=== PATIENT | female | born 1965 | race Caucasian/White ===

== ENCOUNTER 2023-03-22 19:26 | Emergency (ER) | payer BC, SELFPAY ==
[2023-03-22 19:32] VITALS: BP 138/91; PULSE 61; RESP 18; TEMP 36.6; O2SAT 99; BMI 23.3
--- NOTE | 2023-03-22 20:29 | ED.GENADULT ---
HPI - General Adult General Chief complaint: Dental/Oral/Mouth Injury/Pain Stated complaint: Inside lip injury Time Seen by Provider: 03/22/23 19:58 History of Present Illness HPI narrative: This 57-year-old female has an injury to her upper lip that occurred just prior to arrival. 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 She did not have loss of consciousness. She has a 1 cm laceration in the inner aspect of her upper lip. Related Data Home Medications Medication Instructions Recorded Confirmed No Known Home Medications 03/22/23 03/22/23 Allergies Allergy/AdvReac Type Severity Reaction Status Date / Time No Known Drug Allergies Allergy Verified 03/22/23 19:32 Review of Systems Status of ROS: Reports: 10 or more systems reviewed and unremarkable except as noted in History and below Narrative: Constitutional: No fevers, no weight gain or loss. Eyes: No discharge. No vision changes. HENT: No congestion, no sore throat, no ear pain. Cardiovascular: No chest pain, no palpitations. Respiratory: No shortness of breath, no wheezes, no cough. Gastrointestinal: No abdominal pain, no vomiting, no diarrhea. Genitourinary: No dysuria, no hematuria. Musculoskeletal: Normal range of motion. Skin: No rashes, no pruritis. Neurological: No dizziness, weakness, sensory change, speech change. Endo/Heme/Allergies: No bruising or bleeding. No polydipsia. Pysch: no suicidality, no anxiety, no insomnia. All other systems reviewed and are negative. Exam Narrative: Exam Narrative: Constitutional: Well-developed, well-nourished, no acute distress. HEENT: The inner aspect of the upper lip has a stellate laceration measuring in total less than 1 cm in length. The wound edges lay nicely together. There is no other sign of injury. Her teeth are not loose. There is no sign of active bleeding. Neck: Normal range of motion. Nontender. Supple. Heart: Intact distal pulses. Lungs: No chest discomfort. No wheezes, rhonchi, or rales. Abdomen: Nontender. Back: Normal range of motion. Extremities: Normal range of motion. No injury. Skin: Intact. No rash. Warm. No erythema or pallor. Neurologic: No altered sensation. No weakness. Alert and oriented. Psychiatric: No suicidality. No anxiety or depression. No insomnia. Nursing notes and vitals signs are reviewed. Const: Vital Signs, click to edit/add: Vital Signs - 24 hr 03/22/23 19:32 Temperature 97.9 F Pulse Rate [Right Pulse Oximeter] 61 Respiratory Rate 18 Blood Pressure [Le ft Upper Arm] 138/91 H Pulse Oximetry 99 Oxygen Delivery Me thod Room Air Course Vital Signs Vital signs: Initial Vital Signs Temperature 97.9 F 03/22/23 19:32 Temperature Source Temporal Artery Scan 03/22/23 19:32 Pulse Rate 61 03/22/23 19:32 Pulse Rhythm Regular 03/22/23 19:32 Pulse Strength 3+ Normal 03/22/23 19:32 Respiratory Rate 18 03/22/23 19:32 Blood Pressure 138/91 H 03/22/23 19:32 Blood Pressure Mean 106 H 03/22/23 19:32 Blood Pressure Position Sitting 03/22/23 19:32 Pulse Oximetry 99 03/22/23 19:32 Oxygen Delivery Method Room Air 03/22/23 19:32 Vital Signs Temperature 97.9 F 03/22/23 19:32 Pulse Rate 61 03/22/23 19:32 Respiratory Rate 18 03/22/23 19:32 Blood Pressure 138/91 H 03/22/23 19:32 Pulse Oximetry 99 03/22/23 19:32 Oxygen Delivery Method Room Air 03/22/23 19:32 Temperature 97.9 F 03/22/23 19:32 Pulse Rate 61 03/22/23 19:32 Respiratory Rate 18 03/22/23 19:32 Blood Pressure 138/91 H 03/22/23 19:32 Pulse Oximetry 99 03/22/23 19:32 Oxygen Delivery Method Room Air 03/22/23 19:32 Medical Decision Making MDM Narrative Medical decision making narrative: This 57-year-old female has a laceration on the inner aspect of her upper lip. I explained that these wounds are better left alone and will heal nicely and rather quickly. To repair the wound actually increases risk for infection. The patient did not have loss of consciousness and had no other injury. Tetanus status is up-to-date. Discharge Plan Discharge Clinical Impression: Laceration of lip Patient Disposition: Home, Self-Care Condition: Stable Additional Instructions: Increase activity as tolerated. Use [id number] medicines as needed and directed. Follow up with MD or return if worsening. Prescriptions: No Action No Known Home Medications Follow Up/Referrals: Emma Parker PA-C [Primary Care Provider] - Stand Alone Forms: [employer] Info Instructions
== END 2023-03-22 21:03 | disposition home or self-care (01) ==
PROVIDERS: Emergency Provider Emergency Medicine Emergency Medical Services; PCP Physician Assistant Medical
DX: S01.511A Laceration without foreign body of lip, initial encounter (principal); W54.1XXA Struck by dog, initial encounter
CPT/HCPCS: 99282; 99283; 99284

== ENCOUNTER 2024-04-30 19:30 | Emergency (ER) | payer BC, SELFPAY ==
[2024-04-30] VITALS (21 sets, daily range): BP systolic 88–163; BP diastolic 78–95; PULSE 56–120; RESP 18; TEMP 36.6; O2SAT 89–100; BMI 22.4
--- NOTE | 2024-04-30 20:24 | CRLHL7_ITS ---
For Patients: As a result of the Cures Act, medical imaging exams and procedure reports are released immediately into your electronic medical record. You may view this report before your referring provider. If you have questions, please contact your health care provider. INDICATION: Shortness of breath TECHNIQUE: Chest radiograph 2 views COMPARISON: None FINDINGS: Mediastinum: The mediastinum is normal in appearance. The heart silhouette is normal in size and morphology. Lung: Both lungs are unremarkable in appearance. No sign of pleural effusion seen. No pneumothorax is identified. Bone and Soft tissue: Unremarkable for age. IMPRESSION: 1. No acute cardiopulmonary disease is seen. Dictated by: Tristen Lang MD @ 04/30/2024 21:15:04 (Electronically Signed)
[2024-04-30 20:32] LABS: Lactate* 0.6 mmol/L (0.5-1.9)
[2024-04-30 20:33] LABS: Basophils Absolute Auto 0.05 K/uL (0.00-0.30); Eosinophils Absolute Auto 0.07 K/uL (0.00-0.50); Eosinophils Percent Auto 1.4 % (0.0-7.0); Hemoglobin* 10.8 gm/dL (12.0-16.0); Lymphocytes Absolute Auto 1.28 K/uL (0.90-2.90); Mean Corpuscular HGB Conc 32 gm/dL (32-36); Mean Corpuscular Hemoglobin 26 pg (26-34); Mean Corpuscular Volume 81 fL (80-100); Monocytes Percent Auto 9.4 % (0.0-11.0); Neutrophils Absolute Auto 3.25 K/uL (1.7-7.0); Neutrophils Percent Auto 63.2 % (42.0-72.0); Platelet Count* 240 K/uL (140-440); Red Blood Count 4.18 m/uL (4.00-5.20); White Blood Count* 5.13 K/uL (4.50-11.00)
[2024-04-30 20:35] LABS: Slide Review Reflex No
[2024-04-30] MEDS: 0.9 % SODIUM CHLORIDE 1000 ml 1,000 ML IV ×2 (20:45→21:10)
[2024-04-30 20:47] LABS: Troponin, Point-of-Care* 0.01 ng/ml (0.01-0.04)
[2024-04-30 20:48] LABS: Chloride* 105 mmol/L (96-114); Potassium* 3.9 mmol/L (3.6-5.1); Sodium* 133 mmol/L (135-149)
[2024-04-30 20:50] LABS: Creatinine* 0.9 mg/dL (0.5-1.5); Est. Creatinine Clearance* 59.81; Estimated Glomerular Filt Rate 73 ml/min
[2024-04-30 20:51] LABS: Anion Gap 6 mEq/L (7-15); Blood Urea Nitrogen* 18 mg/dL (7-30); Carbon Dioxide* 22 mmol/L (20-32); INR 0.93 (0.91-1.10)
[2024-04-30 20:52] LABS: Calcium* 9.2 mg/dL (8.4-10.6); Glucose* 98 mg/dL (60-115); Partial Thromboplastin Time* 31 Seconds (23-33)
[2024-04-30 20:58] LABS: C Reactive Protein* < 0.5 mg/dL (0.5-1.0); D Dimer Quantitative* < 0.27 ug/ml (0.00-0.50); Ethanol* < 0.01 % (0.01-0.03)
[2024-04-30 21:03] LABS: NT Pro B Type NatriureticPept* 684 pg/mL
[2024-04-30 21:04] LABS: Amphetamine Screen Urine Negative (Negative); Barbiturate Screen Urine Negative (Negative); Benzodiazepines Screen Urine Negative (Negative); Cannabinoid Screen Urine Negative (Negative); Cocaine Screen Urine Negative (Negative); Methadone Screen Urine Negative (Negative); Methamphetamines Screen Urine Negative (Negative); Opiate Screen Urine Negative (Negative); Oxycodone Screen Urine Negative (Negative); Phencyclidine Screen Urine Negative (Negative); Tricyclic Antidepressant Urine Negative (Negative)
[2024-04-30 21:14] LABS: PCR FLU A Negative PCR FLU A (Negative); PCR FLU B Negative PCR FLU B (Negative); PCR RSV Negative PCR RSV (Negative); SARS PCR* Negative SARS-CoV-2 (Negative)
[2024-04-30 21:34] LABS: Magnesium* 1.9 mg/dL (1.5-2.6)
--- NOTE | 2024-04-30 23:58 | ED_ITS ---
HPI - Dizziness General Date Seen: 04/30/24 Chief Complaint: Dizziness/Vertigo Stated Complaint: lightheaded, not hungry, feel off Time Seen by Provider: 04/30/24 19:52 Source: patient and family Mode of arrival: ambulatory Limitations: no limitations History of Present Illness HPI Narrative: Patient is a very nice 58-year-old female who presents here for evaluation of lightheadedness weakness, and a feeling that her heart is racing. She notices came on acutely at approximately 1:30 a.m. this afternoon, she has never before had this, she admits to me that she may be a little dehydrated as she was out earlier, she denies any alcohol use, she denies any drug use or any cold medications, she has no previous heart history, and no family history of heart issues. She presents here with her daughter. MD elicited complaint: dizziness and lightheadedness Onset (ago): hour(s) Timing: sudden onset Severity: moderate History of similar symptoms: No Exacerbating factors: nothing Associated symptoms: denies other symptoms Related Data Home Medications ?Medication ?Instructions ?Recorded ?Confirmed No Known Home Medications 03/22/23 04/30/24 Allergies Allergy/AdvReac Type Severity Reaction Status Date / Time No Known Drug Allergies Allergy Verified 04/30/24 19:53 Review of Systems Status of ROS: Reports: 10 or more systems reviewed and unremarkable except as noted in History and below PFSH [facility] Social History Smoking Status: Never smoker Do you use any of these nicotine containing products: None How often do you have a drink containing alcohol: monthly or less AUDIT-C Alcohol total score: 1 Non-prescribed substance use: denies use Exam Narrative: Exam Narrative: On examination in room 8 she is in no apparent distress she is pleasant and alert speaking to me normally her pupils equal round reactive to light there is no scleral icterus redness or TMs bilaterally normal her oropharynx is normal there is no adenopathy anterior posterior chains her chest is good air entry bilateral with no wheezing crackles noted heart sounds no clicks murmurs are noted. She does have an irregularly irregular pulse, abdomen is soft there is no guarding no organomegaly bowel sounds are normal she moves all extremities independently well neurologically cranial nerves 3-12 are normal there is no tremors, she has no nystagmus, skin reveals no petechiae rashes she moves all extremities independently and well. Const: Vital Signs, click to edit/add: Vital Signs - 24 hr 04/30/24 19:50 04/30/24 20:17 04/30/24 20:30 Temperature 97.9 F Pulse Rate 92 99 Pulse Rate [Pulse Oximeter] 120 H Respiratory Rate 18 Blood Pressure Blood Pressure [Ri ght Upper Arm] 163/83 H Pulse Oximetry 99 99 94 Oxygen Delivery Me thod Room Air 04/30/24 20:32 04/30/24 20:50 04/30/24 21:00 Temperature Pulse Rate 113 H 69 64 Pulse Rate [Pulse Oximeter] Respiratory Rate Blood Pressure 125/78 Blood Pressure [Ri ght Upper Arm] Pulse Oximetry 96 100 100 Oxygen Delivery Me thod 04/30/24 21:02 04/30/24 21:03 04/30/24 21:15 Temperature Pulse Rate 70 72 70 Pulse Rate [Pulse Oximeter] Respiratory Rate Blood Pressure 112/89 Blood Pressure [Ri ght Upper Arm] Pulse Oximetry 94 Oxygen Delivery Me thod 04/30/24 21:30 04/30/24 21:31 04/30/24 21:45 Temperature Pulse Rate 68 71 66 Pulse Rate [Pulse Oximeter] Respiratory Rate Blood Pressure 114/88 Blood Pressure [Ri ght Upper Arm] Pulse Oximetry 100 100 89 Oxygen Delivery Me thod 04/30/24 22:00 04/30/24 22:01 04/30/24 22:15 Temperature Pulse Rate 69 67 70 Pulse Rate [Pulse Oximeter] Respiratory Rate Blood Pressure 105/95 H Blood Pressure [Ri ght Upper Arm] Pulse Oximetry 100 100 91 Oxygen Delivery Me thod 04/30/24 22:30 04/30/24 22:32 04/30/24 22:33 Temperature Pulse Rate 56 L 61 60 Pulse Rate [Pulse Oximeter] Respiratory Rate Blood Pressure 88/78 L 119/82 Blood Pressure [Ri ght Upper Arm] Pulse Oximetry 97 94 100 Oxygen Delivery Me thod 04/30/24 22:45 04/30/24 23:00 04/30/24 23:01 Temperature Pulse Rate 61 57 L 59 L Pulse Rate [Pulse Oximeter] Respiratory Rate Blood Pressure 110/89 Blood Pressure [Ri ght Upper Arm] Pulse Oximetry 96 100 100 Oxygen Delivery Me thod Documenting provider has reviewed patient's vital signs: yes Course Course ED Course: With IV fluids she converted, I believe there is an element of dehydration here, I explained this to her and she feels a lot better, her troponin, D-dimer, a basic metabolic profile TSH, and COVID screen are all negative, her hemoglobin is slightly low at 10.8, I recommend that she follow-up with her primary care physician and discuss this within the next 7-10 days return here if signs symptoms of worsening, she was very comfortable this plan. Vital Signs Vital signs: Initial Vital Signs Temperature 97.9 F 04/30/24 19:50 Temperature Source Temporal Artery Scan 04/30/24 19:50 Pulse Rate 120 H 04/30/24 19:50 Pulse Rhythm Irregular 04/30/24 19:50 Respiratory Rate 18 04/30/24 19:50 Blood Pressure 163/83 H 04/30/24 19:50 Blood Pressure Mean 109 H 04/30/24 19:50 Blood Pressure Position Sitting 04/30/24 19:50 Pulse Oximetry 99 04/30/24 19:50 Oxygen Delivery Method Room Air 04/30/24 19:50 Vital Signs Temperature 97.9 F 04/30/24 19:50 Pulse Rate 120 H 04/30/24 19:50 Respiratory Rate 18 04/30/24 19:50 Blood Pressure 163/83 H 04/30/24 19:50 Pulse Oximetry 99 04/30/24 19:50 Oxygen Delivery Method Room Air 04/30/24 19:50 Temperature 97.9 F 04/30/24 19:50 Pulse Rate 59 L 04/30/24 23:01 Respiratory Rate 18 04/30/24 19:50 Blood Pressure 110/89 04/30/24 23:01 Pulse Oximetry 100 04/30/24 23:01 Oxygen Delivery Method Room Air 04/30/24 19:50 Medications Administered Medications: Discontinued Medications Generic Name Dose Route Start Last Admin Trade Name Freq PRN Reason Stop Dose Admin Sodium Chloride 1,000 mls @ 1,000 mls/hr 04/30/24 20:30 04/30/24 21:19 0.9 % Sodium Chloride 1000 Ml IV 04/30/24 21:29 Infused .Q1H HARMONY Infusion Sodium Chloride 1,000 mls @ 1,000 mls/hr 04/30/24 21:15 04/30/24 22:10 0.9 % Sodium Chloride 1000 Ml IV 04/30/24 22:14 Infused .Q1H HARMONY Infusion MDM - Dizziness MDM Narrative Medical decision making narrative: Differential diagnosis includes but is not limited to psychosocial stress, thyroid abnormalities, CHF, SVT, atrial fibrillation, ventricular tachycardia and ventricular fibrillation. This includes the life-threatening complications of heart failure, V-tach, and VFib Medical Records Attestation: I reviewed the patient's medical records. Lab Data Attestation: I reviewed the patient's lab results. Labs: Lab Results 04/30/24 04/30/24 04/30/24 Range/Units 20:20 20:25 20:34 WBC 5.13 (4.50-11.00) K/uL RBC 4.18 (4.00-5.20) m/uL Hgb 10.8 L (12.0-16.0) gm/dL Hct 34.0 (33.0-51.0) % MCV 81 (80-100) fL MCH 26 (26-34) pg MCHC 32 (32-36) gm/dL RDW Coeff of Renetta 14.0 (11.5-15.5) % Plt Count 240 (140-440) K/uL Neut % (Auto) 63.2 (42.0-72.0) % Lymph % (Auto) 25.0 (20-44) % [place] % (Auto) 9.4 (0.0-11.0) % Eos % (Auto) 1.4 (0.0-7.0) % Baso % (Auto) 1.0 (0.0-3.0) % Neut # (Auto) 3.25 (1.7-7.0) K/uL Lymph # (Auto) 1.28 (0.90-2.90) K/uL [place] # (Auto) 0.50 (0.00-0.90) K/UL Eos # (Auto) 0.07 (0.00-0.50) K/uL Baso # (Auto) 0.05 (0.00-0.30) K/uL Abs Immat Gran (auto) 0.00 (0.00-0.30) K/uL Imm/Tot Granulo (auto) 0.0 % INR 0.93 (0.91-1.10) APTT 31 (23-33) Seconds D-Dimer Quant (PE/DVT) < 0.27 (0.00-0.50) ug/ml Sodium 133 L (135-149) mmol/L Potassium 3.9 (3.6-5.1) mmol/L Chloride 105 (96-114) mmol/L Carbon Dioxide 22 (20-32) mmol/L Anion Gap 6 L (7-15) mEq/L BUN 18 (7-30) mg/dL Creatinine 0.9 (0.5-1.5) mg/dL Estimated Creat Clear 59.81 Estimated GFR 73 ml/min Glucose 98 (60-115) mg/dL Lactate 0.6 (0.5-1.9) mmol/L Calcium 9.2 (8.4-10.6) mg/dL Magnesium 1.9 (1.5-2.6) mg/dL C-Reactive Protein < 0.5 L (0.5-1.0) mg/dL NT-Pro-B Natriuret Pep 684 pg/mL TSH 2.210 (0.270-4.20) uIU/mL Urine Opiates Screen (Negative) Ur Oxycodone Screen (Negative) Urine Methadone Screen (Negative) Ur Barbiturates Screen (Negative) U Tricyclic Antidepress (Negative) Ur Phencyclidine Scrn (Negative) Ur Amphetamines Screen (Negative) U Methamphetamines Scrn (Negative) U Benzodiazepines Scrn (Negative) Urine Cocaine Screen (Negative) U Marijuana (THC) Screen (Negative) Ur Drug Screen Comment Ethyl Alcohol < 0.01 L (0.01-0.03) % SARS-CoV-2 (PCR) Negative SARS-CoV-2 (Negative) Influenza Type A (PCR) Negative PCR FLU A (Negative) Influenza Type B (PCR) Negative PCR FLU B (Negative) RSV (PCR) Negative PCR RSV (Negative) Lab Acknowledgement POC Troponin I 0.01 (0.01-0.04) ng/ml 04/30/24 04/30/24 04/30/24 Range/Units 20:48 21:13 21:54 WBC (4.50-11.00) K/uL RBC (4.00-5.20) m/uL Hgb (12.0-16.0) gm/dL Hct (33.0-51.0) % MCV (80-100) fL MCH (26-34) pg MCHC (32-36) gm/dL RDW Coeff of Renetta (11.5-15.5) % Plt Count (140-440) K/uL Neut % (Auto) (42.0-72.0) % Lymph % (Auto) (20-44) % [place] % (Auto) (0.0-11.0) % Eos % (Auto) (0.0-7.0) % Baso % (Auto) (0.0-3.0) % Neut # (Auto) (1.7-7.0) K/uL Lymph # (Auto) (0.90-2.90) K/uL [place] # (Auto) (0.00-0.90) K/UL Eos # (Auto) (0.00-0.50) K/uL Baso # (Auto) (0.00-0.30) K/uL Abs Immat Gran (auto) (0.00-0.30) K/uL Imm/Tot Granulo (auto) % INR (0.91-1.10) APTT (23-33) Seconds D-Dimer Quant (PE/DVT) (0.00-0.50) ug/ml Sodium (135-149) mmol/L Potassium (3.6-5.1) mmol/L Chloride (96-114) mmol/L Carbon Dioxide (20-32) mmol/L Anion Gap (7-15) mEq/L BUN (7-30) mg/dL Creatinine (0.5-1.5) mg/dL Estimated Creat Clear Estimated GFR ml/min Glucose (60-115) mg/dL Lactate (0.5-1.9) mmol/L Calcium (8.4-10.6) mg/dL Magnesium (1.5-2.6) mg/dL C-Reactive Protein (0.5-1.0) mg/dL NT-Pro-B Natriuret Pep pg/mL TSH (0.270-4.20) uIU/mL Urine Opiates Screen Negative (Negative) Ur Oxycodone Screen Negative (Negative) Urine Methadone Screen Negative (Negative) Ur Barbiturates Screen Negative (Negative) U Tricyclic Antidepress Negative (Negative) Ur Phencyclidine Scrn Negative (Negative) Ur Amphetamines Screen Negative (Negative) U Methamphetamines Scrn Negative (Negative) U Benzodiazepines Scrn Negative (Negative) Urine Cocaine Screen Negative (Negative) U Marijuana (THC) Screen Negative (Negative) Ur Drug Screen Comment See Note Ethyl Alcohol (0.01-0.03) % SARS-CoV-2 (PCR) (Negative) Influenza Type A (PCR) (Negative) Influenza Type B (PCR) (Negative) RSV (PCR) (Negative) Lab Acknowledgement Test Added Test Added POC Troponin I (0.01-0.04) ng/ml Imaging Data Chest x-ray: Attestation: I have reviewed the pertinent imaging results. My impression: No evidence of any acute abnormality by my review Radiologist's impression: Patient: IVAN VEGA Facility:?[facility] Patient ID:?[id number] Site Patient ID:?[id number]. Site :?[id number] Study:?XRay-Chest 2V-04/30/2024 8:47:22 PM Ordering Physician:Nehemiah Sanchez Final Report: INDICATION: Shortness of breath TECHNIQUE: Chest radiograph 2 views COMPARISON: None FINDINGS: Mediastinum: The mediastinum is normal in appearance. The heart silhouette is normal in size and morphology. Lung: Both lungs are unremarkable in appearance. No sign of pleural effusion seen. No pneumothorax is identified. Bone and Soft tissue: Unremarkable for age. IMPRESSION: 1. No acute cardiopulmonary disease is seen. Dictated by: Tristen Lang MD @ 04/30/2024 21:15:04 (Electronic Signature) ECG Data Attestation: I personally reviewed and interpreted this ECG as follows: ECG interpretation date: 04/30/24 Prior ECG tracings: not available for review Interpretation: EKG shows atrial fibrillation with rapid ventricular response at 114-135 on the monitor. There is no acute ST wave changes. QRS is normal, QT and QTC are normal, this is on the initial EKG from 8:00 p.m., follow-up EKG from 06/26 show she is in normal sinus rhythm, with a ventricular rate of 70, intervals are also normal. Discharge Plan Discharge Clinical Impression: Atrial fibrillation with RVR Patient Disposition: Home w/ Parent or Adult Condition: Stable Instructions: A-fib (Atrial Fibrillation) (ED) Additional Instructions: Home rest follow-up with primary care, recommend this within the next week to 10 days, return if ongoing signs and symptoms. Hopefully this was just a 1 time issue for yourself, all your blood tests were okay, with the exception of your hemoglobin being low on the low side at 10.8. Hydration, hydration, hydration Activity Level: No Restrictions Prescriptions: No Action No Known Home Medications Follow Up/Referrals: Emma Parker PAConstantinC [Primary Care Provider] - Stand Alone Forms: [facility] Info Instructions
== END 2024-04-30 23:15 | disposition home or self-care (01) ==
PROVIDERS: Emergency Provider Family Medicine; PCP Physician Assistant Medical
DX: I48.91 Unspecified atrial fibrillation (principal)
CPT/HCPCS: 36415; 71046; 80048; 80306; 82077; 83605; 83735; 83880; 84443; 84484; 85025; 85379; 85610; 85730; 86140; 87631; 93005; 94761; 96360; 99284; 99285; J7030

== ENCOUNTER 2024-11-27 13:01 | Emergency (ER) | payer BC, SELFPAY ==
[2024-11-27 13:28] VITALS: BP 151/85; PULSE 100; RESP 18; TEMP 36.9; O2SAT 99; BMI 24.1
--- NOTE | 2024-11-27 17:17 | ED.GENADULT ---
HPI - General Adult General Chief complaint: Arrhythmia/Palpitations Stated complaint: Heart palpatations Time Seen by Provider: 11/27/24 16:59 History of Present Illness HPI narrative: This 59-year-old female comes in reporting symptoms of increased fatigue and some heart palpitations. She does report a couple episodes of atrial fibrillation that spontaneously resolved. She states there was 1 about 6 months ago that converted after getting IV fluids and again a couple months ago after receiving magnesium as apparently her magnesium was low. She does not report any chest pain. 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 She does not report any nausea, vomiting, lightheadedness, shortness of breath, or diaphoresis. She does not have any exercise intolerance. Related Data Home Medications ?Medication ?Instructions ?Recorded ?Confirmed diltiazem HCl 60 mg tablet 60 mg PO ONCE PRN 11/27/24 11/27/24 Allergies Allergy/AdvReac Type Severity Reaction Status Date / Time No Known Drug Allergies Allergy Verified 11/27/24 13:36 Review of Systems Status of ROS: Reports: 10 or more systems reviewed and unremarkable except as noted in History and below Narrative: Constitutional: No fevers, no weight gain or loss. Eyes: No discharge. No vision changes. HENT: No congestion, no sore throat, no ear pain. Cardiovascular: No chest pain. She reports some palpitations. Respiratory: No shortness of breath, no wheezes, no cough. Gastrointestinal: No abdominal pain, no vomiting, no diarrhea. Genitourinary: No dysuria, no hematuria. Musculoskeletal: Normal range of motion. Skin: No rashes, no pruritis. Neurological: No dizziness, weakness, sensory change, speech change. Endo/Heme/Allergies: No bruising or bleeding. No polydipsia. Pysch: no suicidality, no anxiety, no insomnia. All other systems reviewed and are negative. [facility] Social History Smoking Status: Never smoker Do you use any of these nicotine containing products: None How often do you have a drink containing alcohol: monthly or less How often do you have six or more drinks on one occasion: Never AUDIT-C Alcohol total score: 1 Non-prescribed substance use: denies use Exam Narrative: Exam Narrative: Constitutional: Well-developed, well-nourished, no acute distress. HEENT: Normocephalic, atraumatic. Neck: Normal range of motion. Nontender. Supple. Heart: Regular. No murmurs. Normal rate. Intact distal pulses. Lungs: Clear to auscultation. No chest discomfort. No wheezes, rhonchi, or rales. Abdomen: Normal bowel sounds. Nontender. No rebound tenderness. Genitalia: Deferred. Back: No midline tenderness. Normal range of motion. Extremities: Normal range of motion. No injury. Skin: Intact. No rash. Warm. No erythema or pallor. Neurologic: No altered sensation. No weakness. Alert and oriented. Psychiatric: No suicidality. No anxiety or depression. No insomnia. Nursing notes and vitals signs are reviewed. Const: Vital Signs, click to edit/add: Vital Signs - 24 hr 11/27/24 13:28 11/27/24 17:46 Temperature 98.5 F Pulse Rate [Right Pulse Oximeter] 100 56 L Respiratory Rate 18 18 Blood Pressure [Ri t Upper Arm] 151/85 H 118/76 Pulse Oximetry 99 99 Oxygen Delivery Me thod Room Air Room Air Course Vital Signs Vital signs: Initial Vital Signs Temperature 98.5 F 11/27/24 13:28 Temperature Source Temporal Artery Scan 11/27/24 13:28 Pulse Rate 100 11/27/24 13:28 Pulse Rhythm Regular 11/27/24 13:28 Pulse Strength 3+ Normal 11/27/24 13:28 Respiratory Rate 18 11/27/24 13:28 Blood Pressure 151/85 H 11/27/24 13:28 Blood Pressure Mean 107 H 11/27/24 13:28 Blood Pressure Position Sitting 11/27/24 13:28 Pulse Oximetry 99 11/27/24 13:28 Oxygen Delivery Method Room Air 11/27/24 13:28 Vital Signs Temperature 98.5 F 11/27/24 13:28 Pulse Rate 100 11/27/24 13:28 Respiratory Rate 18 11/27/24 13:28 Blood Pressure 151/85 H 11/27/24 13:28 Pulse Oximetry 99 11/27/24 13:28 Oxygen Delivery Method Room Air 11/27/24 13:28 Temperature 98.5 F 11/27/24 13:28 Pulse Rate 56 L 11/27/24 17:46 Respiratory Rate 18 11/27/24 17:46 Blood Pressure 118/76 11/27/24 17:46 Pulse Oximetry 99 11/27/24 17:46 Oxygen Delivery Method Room Air 11/27/24 17:46 Medical Decision Making MDM Narrative Medical decision making narrative: This patient comes in reporting some fatigue and sense of palpitations. She does have a history of paroxysmal atrial fibrillation and is taking and Anacin tablet daily. She arrives here with normal sinus rhythm and states now that she feels okay. She did have an echocardiogram a week ago and is scheduled for a cardiology appointment next week. EKG and lab results today returned with reassuring findings. Patient is encouraged by this report. She is okay to be discharged home to follow-up as scheduled or instructed to return if symptoms are recurrent or worsening. Lab Data Labs: Lab Results 11/27/24 11/27/24 Range/Units 17:16 17:34 WBC 5.33 (4.50-11.00) K/uL RBC 4.62 (4.00-5.20) m/uL Hgb 11.1 L (12.0-16.0) gm/dL Hct 35.8 (33.0-51.0) % MCV 78 L (80-100) fL MCH 24 L (26-34) pg MCHC 31 L (32-36) gm/dL RDW Coeff of Renetta 15.1 (11.5-15.5) % Plt Count 322 (140-440) K/uL Neut % (Auto) 70.7 (42.0-72.0) % Lymph % (Auto) 21.0 (20-44) % [place] % (Auto) 6.2 (0.0-11.0) % Eos % (Auto) 1.3 (0.0-7.0) % Baso % (Auto) 0.8 (0.0-3.0) % Neut # (Auto) 3.77 (1.7-7.0) K/uL Lymph # (Auto) 1.12 (0.90-2.90) K/uL [place] # (Auto) 0.30 (0.00-0.90) K/UL Eos # (Auto) 0.07 (0.00-0.50) K/uL Baso # (Auto) 0.04 (0.00-0.30) K/uL Abs Immat Gran (auto) 0.00 (0.00-0.30) K/uL Imm/Tot Granulo (auto) 0.0 % Sodium 132 L (135-149) mmol/L Potassium 4.1 (3.6-5.1) mmol/L Chloride 98 (96-114) mmol/L Carbon Dioxide 24 (20-32) mmol/L Anion Gap 10 (7-15) mEq/L BUN 15 (7-30) mg/dL Creatinine 0.9 (0.5-1.5) mg/dL Estimated Creat Clear 53.16 Estimated GFR 73 ml/min Glucose 96 (60-115) mg/dL Calcium 9.5 (8.4-10.6) mg/dL Magnesium 2.1 (1.5-2.6) mg/dL POC Troponin I 0.01 (0.01-0.04) ng/ml ECG Data Attestation: I personally reviewed and interpreted this ECG as follows: Interpretation: Normal sinus rhythm. Rate is 90 beats per minute. There are no ST or T-wave abnormalities. Discharge Plan Discharge Clinical Impression: Palpitations Patient Disposition: Home, Self-Care Condition: Stable Additional Instructions: Continue current plans. Follow up with MD as scheduled or return if symptoms are recurrent or worsening. Prescriptions: No Action diltiazem HCl 60 mg tablet 60 mg PO ONCE PRN Follow Up/Referrals: Emma Parker PA-C [Primary Care Provider] - Stand Alone Forms: [employer] Info Instructions
[2024-11-27 17:42] LABS: Basophils Absolute Auto 0.04 K/uL (0.00-0.30); Basophils Percent Auto 0.8 % (0.0-3.0); Eosinophils Absolute Auto 0.07 K/uL (0.00-0.50); Eosinophils Percent Auto 1.3 % (0.0-7.0); Hematocrit 35.8 % (33.0-51.0); Hemoglobin* 11.1 gm/dL (12.0-16.0); Lymphocytes Absolute Auto 1.12 K/uL (0.90-2.90); Mean Corpuscular HGB Conc 31 gm/dL (32-36); Mean Corpuscular Hemoglobin 24 pg (26-34); Mean Corpuscular Volume 78 fL (80-100); Monocytes Percent Auto 6.2 % (0.0-11.0); Neutrophils Absolute Auto 3.77 K/uL (1.7-7.0); Neutrophils Percent Auto 70.7 % (42.0-72.0); Platelet Count* 322 K/uL (140-440); RDW Coefficient of Variation % 15.1 % (11.5-15.5); Red Blood Count 4.62 m/uL (4.00-5.20); White Blood Count* 5.33 K/uL (4.50-11.00)
[2024-11-27 17:46] VITALS: BP 118/76; PULSE 56; RESP 18; O2SAT 99
[2024-11-27 17:51] LABS: Slide Review Reflex No
[2024-11-27 17:53] LABS: Troponin, Point-of-Care* 0.01 ng/ml (0.01-0.04)
[2024-11-27 18:06] LABS: Chloride* 98 mmol/L (96-114); Sodium* 132 mmol/L (135-149)
[2024-11-27 18:07] LABS: Potassium* 4.1 mmol/L (3.6-5.1)
[2024-11-27 18:09] LABS: Anion Gap 10 mEq/L (7-15); Blood Urea Nitrogen* 15 mg/dL (7-30); Carbon Dioxide* 24 mmol/L (20-32); Creatinine* 0.9 mg/dL (0.5-1.5); Est. Creatinine Clearance* 53.16; Estimated Glomerular Filt Rate 73 ml/min
[2024-11-27 18:10] LABS: Calcium* 9.5 mg/dL (8.4-10.6); Glucose* 96 mg/dL (60-115); Magnesium* 2.1 mg/dL (1.5-2.6)
== END 2024-11-27 18:46 | disposition home or self-care (01) ==
PROVIDERS: Emergency Provider Emergency Medicine Emergency Medical Services; PCP Physician Assistant Medical
DX: R00.2 Palpitations (principal)
CPT/HCPCS: 36415; 80048; 83735; 84484; 85025; 93005; 99284